=== PATIENT | male | born 1955 | race Caucasian/White ===

== ENCOUNTER → 2017-10-12 | Outpatient (CLI) | payer OTHER ==
[~2017-10-12] MED LIST: "\\\"STATIN\\\""; CALCIUM + D 601 EACH PO; CYCLOBENZAPRINE10 M1 PO; Cyclobenzaprine HCl PO; DIOVAN160 MG PO; FEOSOL325 MG PO; LEVOTHROID,SYN0.1 MG PO; Levothroid,Synthroid PO; MEGA MULTIVITA1 EACH PO; OXYCONTIN10 MG PO; OxyCODONE PO; OxyCONTIN PO; Oyst-Cal D, Oscal W/ PO; PRAVACHOL40 MG PO; PRAVASTATIN SOD40 MG PO; Percocet 7.5/325,End PO; THERAGRAN1 TABLET PO; [UNRECOGNIZED DRUG - OTHER] PO; predniSONE PO
[2017-10-12 09:07] VITALS: BP 158/73
== END | disposition home or self-care (01) ==
LOC: OPR 08:30 → MRI 09:00 → OPR 09:35 → EDSTATUS 09:35 → MRI 12:13
DX: M48.061 Spinal stenosis, lumbar region without neurogenic claudication (principal); M54.16 Radiculopathy, lumbar region; Z98.1 Arthrodesis status
CPT/HCPCS: 72158; J0330; J2250; J2405; J3010